=== PATIENT | male | born 1955 | race Caucasian/White ===

== ENCOUNTER 2016-10-26 10:13 | Emergency (ER) | payer BC ==
[~2016-10-26] VITALS: Ht 182.9 cm; Wt 94.3 kg
[2016-10-26] MEDS ORDERED: HYDROCODONE-AP1 EAC6 PO (10:26)
[2016-10-26 11:07] LABS: HEMATOCRIT 44.6 % (42.0-52.0); HEMOGLOBIN 15.1 gm/dL (14.0-18.0); MCH 32.1 pg (26.0-34.0); MCHC 33.9 g/dL (28.0-37.0); MCV 94.8 fL (80.0-100.0); PLATELET COUNT 165 thou/uL (150-400); RBC 4.71 mil/uL (4.50-6.00); RDW 12.5 % (10.5-14.5); WBC 6.7 thou/uL (4.0-11.0)
[2016-10-26 11:08] LABS: MANUAL DIFF YES
[2016-10-26 11:16] LABS: CALCIUM 8.6 mg/dL (8.5-10.1); CREATININE 0.9 mg/dL (0.7-1.3); POTASSIUM 4.1 mmol/L (3.5-5.1)
[2016-10-26 11:46] LABS: ABSOLUTE NEUTROPHILS 4.8 thou/uL (1.4-8.2); ANISOCYTOSIS SLIGHT; TOTAL CELL COUNT 100
[2016-10-26] MEDS ORDERED: CLEOCIN HCL150 MG PO (14:13)
[2016-10-26] MEDS ORDERED: NORCO 5-325 TA1 EACH PO (14:18)
[2016-10-26] MEDS ORDERED: PERCOCET 5-3251 EACH PO (14:28)
[2016-10-26 14:30] VITALS: BP 132/76
== END 2016-10-26 14:31 | disposition home or self-care (01) ==
LOC: ER 10:13
PROVIDERS: Physician Assistant
DX: T66.XXXA Radiation sickness, unspecified, initial encounter (principal); L03.221 Cellulitis of neck; F17.210 Nicotine dependence, cigarettes, uncomplicated; F10.99 Alcohol use, unspecified with unspecified alcohol-induced disorder; F12.10 Cannabis abuse, uncomplicated; W90.8XXA Exposure to other nonionizing radiation, initial encounter; Z98.890 Other specified postprocedural states; Y93.89 Activity, other specified; Y92.89 Other specified places as the place of occurrence of the external cause; Y99.8 Other external cause status

== ENCOUNTER → 2017-07-18 | Outpatient (CLI) | payer BC ==
[~2017-07-18] MED LIST: CLEOCIN HCL150 MG PO; HYDROCODONE-AP1 EAC6 PO; NORCO 5-325 TA1 EACH PO; PERCOCET 5-3251 EACH PO
--- NOTE | ~2017-07-18 | HC ---
[facility] [place] [address] CONSULTATION Name: VAUGHNHEENALETTY Ma Room #: REG [facility]#: [id number] Admission: 07/18/17 Attend Phys: Ryan Latham MD Discharge: Date of : 51 Report #: [id number] THIS REPORT FOR: //name// CC: [facility] physician/PCP yRan Latham Please match this up with our wound's expert H and P as well. 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 The patient states he then subsequently developed a new left buccal lesion back in 10/2015 that was positive for squamous cell carcinoma and had a transoral resection of the left buccal cancer with split-thickness skin graft back in 10/2015. The patient had no adjuvant therapy associated with this. The patient states then he had actually a recurrent area noted in 01/2016 which also was squamous cell carcinoma, had resection of this as well. He was then referred to Oncology back in 03/2016. The patient then was started on cisplatin as well as concurrent radiation therapy to the site. The patient had a total of 5 weeks of cisplatin and then his last dose of radiation was in 05/2016. The patient then most recently presented to his oncologist for significant trismus and possible infection of his left lower mandibular region with evidence of associated infected tooth. The patient's dentist's actually is wanting to pull the tooth; however, given his significant amount of radiation therapy to that site and the patient on CAT scan now shows significant cellulitis and myositis secondary to the infection and the radiation tissue, he was referred to our facility for hyperbaric oxygen therapy. The patient at this time is referred once again for hyperbaric oxygen therapy for pre and post treatments prior to undergoing dental extraction of the infected tooth in his previously irradiated mandibular region. The patient does complain of mild pain associated with the infection. The patient, however, denies fevers or chills. The patient is currently on antibiotics. For past medical and surgical history as well as his current medications, drug allergies, social history, review of systems as well as the associated physical exam, please see the wound expert's documentation which is extensive. IMPRESSION: 1. Soft tissue area of necrosis of the left mandibular region, status post over 6000 rads of radiation therapy secondary to recurrent buccal carcinoma-the patient is now cancer free. 2. Infected left lower molar, requiring extraction. 3. History of cisplatin chemotherapy with last dose being 05/24/2016. PLAN: At this time, I have talked to the patient at length and we will plan on treating this patient with pre and post treatment of hyperbaric oxygen therapy prior to undergoing dental extraction in a previously irradiated mandibular region. We will do 20 treatments prior to extraction [place] [address] CONSULTATION Name: LETTY DAVILA Room #: REG CLI Linda#: [id number] Admission: 07/18/17 Attend Phys: Ryan Latham MD Discharge: Date of : 51 Report #: [id number] be sent for the extraction and will have a total of 10 treatments after the extraction. We will watch the patient very closely and keep in contact with his oncology physicians as well as his dentist. <ELECTRONICALLY SIGNED> By: Ryan Latham MD 08/17/17 1524 [id number] Ryan Latham MD /nt
== END ==
LOC: RAD 06:40 → HYPER 06:40
DX: T66.XXXA Radiation sickness, unspecified, initial encounter (principal); T87.44 Infection of amputation stump, left lower extremity

== ENCOUNTER → 2017-07-24 | Outpatient (CLI) | payer BC | LOC: HYPER 06:43 | DX: L59.8 Other specified disorders of the skin and subcutaneous tissue related to radiation (principal); M27.8 Other specified diseases of jaws; Z85.828 Personal history of other malignant neoplasm of skin; Z85.818 Personal history of malignant neoplasm of other sites of lip, oral cavity, and pharynx; Z87.891 Personal history of nicotine dependence; Z72.89 Other problems related to lifestyle; Y84.2 Radiological procedure and radiotherapy as the cause of abnormal reaction of the patient, or of later complication, without mention of misadventure at the time of the procedure ==

== ENCOUNTER → 2017-07-25 | Outpatient (CLI) | payer BC | LOC: HYPER 06:53 | DX: L59.8 Other specified disorders of the skin and subcutaneous tissue related to radiation (principal); M27.8 Other specified diseases of jaws; Z85.819 Personal history of malignant neoplasm of unspecified site of lip, oral cavity, and pharynx; Z87.891 Personal history of nicotine dependence; Z72.89 Other problems related to lifestyle; Y84.2 Radiological procedure and radiotherapy as the cause of abnormal reaction of the patient, or of later complication, without mention of misadventure at the time of the procedure ==

== ENCOUNTER → 2017-07-26 | Outpatient (CLI) | payer BC | LOC: HYPER 08:13 | DX: L59.8 Other specified disorders of the skin and subcutaneous tissue related to radiation (principal); M27.2 Inflammatory conditions of jaws; Z85.828 Personal history of other malignant neoplasm of skin; Z85.819 Personal history of malignant neoplasm of unspecified site of lip, oral cavity, and pharynx; Z87.891 Personal history of nicotine dependence; Z72.89 Other problems related to lifestyle; Y84.2 Radiological procedure and radiotherapy as the cause of abnormal reaction of the patient, or of later complication, without mention of misadventure at the time of the procedure ==

== ENCOUNTER → 2017-07-27 | Outpatient (CLI) | payer BC | LOC: HYPER 06:54 | DX: L59.8 Other specified disorders of the skin and subcutaneous tissue related to radiation (principal); M27.8 Other specified diseases of jaws; Z85.828 Personal history of other malignant neoplasm of skin; Z92.3 Personal history of irradiation; Z87.891 Personal history of nicotine dependence; Z72.89 Other problems related to lifestyle ==

== ENCOUNTER → 2017-07-31 | Outpatient (CLI) | payer BC | LOC: HYPER 07:01 | DX: L59.8 Other specified disorders of the skin and subcutaneous tissue related to radiation (principal); M27.2 Inflammatory conditions of jaws; Z85.819 Personal history of malignant neoplasm of unspecified site of lip, oral cavity, and pharynx; Z87.891 Personal history of nicotine dependence; Z72.89 Other problems related to lifestyle; Y84.2 Radiological procedure and radiotherapy as the cause of abnormal reaction of the patient, or of later complication, without mention of misadventure at the time of the procedure ==

== ENCOUNTER → 2017-08-01 | Outpatient (CLI) | payer BC | LOC: HYPER 06:42 | DX: M27.2 Inflammatory conditions of jaws (principal); L59.8 Other specified disorders of the skin and subcutaneous tissue related to radiation; Z85.828 Personal history of other malignant neoplasm of skin; Z92.3 Personal history of irradiation; M87.88 Other osteonecrosis, other site; Z87.891 Personal history of nicotine dependence; Z72.89 Other problems related to lifestyle ==

== ENCOUNTER → 2017-08-02 | Outpatient (CLI) | payer BC | LOC: HYPER 07:04 | DX: M27.8 Other specified diseases of jaws (principal); L59.8 Other specified disorders of the skin and subcutaneous tissue related to radiation; Z85.828 Personal history of other malignant neoplasm of skin; Z92.3 Personal history of irradiation; Z87.891 Personal history of nicotine dependence; Z72.89 Other problems related to lifestyle ==

== ENCOUNTER → 2017-08-03 | Outpatient (CLI) | payer BC | LOC: HYPER 06:47 | DX: L59.8 Other specified disorders of the skin and subcutaneous tissue related to radiation (principal); M27.2 Inflammatory conditions of jaws; Z85.819 Personal history of malignant neoplasm of unspecified site of lip, oral cavity, and pharynx; Z87.891 Personal history of nicotine dependence; Z72.89 Other problems related to lifestyle; Y84.2 Radiological procedure and radiotherapy as the cause of abnormal reaction of the patient, or of later complication, without mention of misadventure at the time of the procedure ==

== ENCOUNTER → 2017-08-04 | Outpatient (CLI) | payer BC | LOC: HYPER 07:57 | DX: L59.8 Other specified disorders of the skin and subcutaneous tissue related to radiation (principal); M27.2 Inflammatory conditions of jaws; Z85.819 Personal history of malignant neoplasm of unspecified site of lip, oral cavity, and pharynx; Z87.891 Personal history of nicotine dependence; Z72.89 Other problems related to lifestyle; Y84.2 Radiological procedure and radiotherapy as the cause of abnormal reaction of the patient, or of later complication, without mention of misadventure at the time of the procedure ==

== ENCOUNTER → 2017-08-07 | Outpatient (CLI) | payer BC | LOC: HYPER 06:50 | DX: L59.8 Other specified disorders of the skin and subcutaneous tissue related to radiation (principal); M27.2 Inflammatory conditions of jaws; D48.5 Neoplasm of uncertain behavior of skin; Z85.828 Personal history of other malignant neoplasm of skin; Z87.891 Personal history of nicotine dependence; Z72.89 Other problems related to lifestyle ==

== ENCOUNTER → 2017-08-08 | Outpatient (CLI) | payer BC | LOC: HYPER 06:45 | DX: M27.8 Other specified diseases of jaws (principal); L59.8 Other specified disorders of the skin and subcutaneous tissue related to radiation; Z85.828 Personal history of other malignant neoplasm of skin; Z92.3 Personal history of irradiation; Z87.891 Personal history of nicotine dependence; Z72.89 Other problems related to lifestyle ==

== ENCOUNTER → 2017-08-09 | Outpatient (CLI) | payer BC | LOC: HYPER 07:00 | DX: L59.8 Other specified disorders of the skin and subcutaneous tissue related to radiation (principal); M27.2 Inflammatory conditions of jaws; D48.5 Neoplasm of uncertain behavior of skin; Z85.828 Personal history of other malignant neoplasm of skin; Z92.3 Personal history of irradiation; Z87.891 Personal history of nicotine dependence; Z72.89 Other problems related to lifestyle ==

== ENCOUNTER → 2017-08-10 | Outpatient (CLI) | payer BC | LOC: HYPER 08:24 | DX: L59.8 Other specified disorders of the skin and subcutaneous tissue related to radiation (principal); M27.2 Inflammatory conditions of jaws; Z85.828 Personal history of other malignant neoplasm of skin; Z87.891 Personal history of nicotine dependence; Z72.89 Other problems related to lifestyle ==

== ENCOUNTER → 2017-08-11 | Outpatient (CLI) | payer BC | LOC: HYPER 08:13 | DX: L59.8 Other specified disorders of the skin and subcutaneous tissue related to radiation (principal); M27.2 Inflammatory conditions of jaws; Z85.818 Personal history of malignant neoplasm of other sites of lip, oral cavity, and pharynx; Z87.891 Personal history of nicotine dependence; Z72.89 Other problems related to lifestyle; Y84.2 Radiological procedure and radiotherapy as the cause of abnormal reaction of the patient, or of later complication, without mention of misadventure at the time of the procedure ==

== ENCOUNTER → 2017-08-14 | Outpatient (CLI) | payer BC | LOC: HYPER 06:51 | DX: M27.2 Inflammatory conditions of jaws (principal); L59.8 Other specified disorders of the skin and subcutaneous tissue related to radiation; Z85.818 Personal history of malignant neoplasm of other sites of lip, oral cavity, and pharynx; Z87.891 Personal history of nicotine dependence; Z72.89 Other problems related to lifestyle; Y84.2 Radiological procedure and radiotherapy as the cause of abnormal reaction of the patient, or of later complication, without mention of misadventure at the time of the procedure ==

== ENCOUNTER → 2017-08-15 | Outpatient (CLI) | payer BC | LOC: HYPER 06:59 | DX: M87.88 Other osteonecrosis, other site (principal); L59.8 Other specified disorders of the skin and subcutaneous tissue related to radiation; Z85.819 Personal history of malignant neoplasm of unspecified site of lip, oral cavity, and pharynx; Z72.89 Other problems related to lifestyle; Z87.891 Personal history of nicotine dependence; Y84.2 Radiological procedure and radiotherapy as the cause of abnormal reaction of the patient, or of later complication, without mention of misadventure at the time of the procedure ==

== ENCOUNTER → 2017-08-16 | Outpatient (CLI) | payer BC | LOC: HYPER 06:36 | DX: M87.88 Other osteonecrosis, other site (principal); L59.8 Other specified disorders of the skin and subcutaneous tissue related to radiation; M27.8 Other specified diseases of jaws; Z85.828 Personal history of other malignant neoplasm of skin; Z92.3 Personal history of irradiation; Z85.818 Personal history of malignant neoplasm of other sites of lip, oral cavity, and pharynx; Z87.891 Personal history of nicotine dependence; Z72.89 Other problems related to lifestyle ==

== ENCOUNTER → 2017-08-17 | Outpatient (CLI) | payer BC | LOC: HYPER 08-09 06:45 | DX: L59.8 Other specified disorders of the skin and subcutaneous tissue related to radiation (principal); M27.8 Other specified diseases of jaws; Z85.818 Personal history of malignant neoplasm of other sites of lip, oral cavity, and pharynx; Z85.828 Personal history of other malignant neoplasm of skin; Z92.3 Personal history of irradiation; Z87.891 Personal history of nicotine dependence; Z72.89 Other problems related to lifestyle; Y84.2 Radiological procedure and radiotherapy as the cause of abnormal reaction of the patient, or of later complication, without mention of misadventure at the time of the procedure ==

== ENCOUNTER → 2017-08-18 | Outpatient (CLI) | payer BC | LOC: HYPER 08:07 | DX: L59.8 Other specified disorders of the skin and subcutaneous tissue related to radiation (principal); M27.8 Other specified diseases of jaws; Z85.818 Personal history of malignant neoplasm of other sites of lip, oral cavity, and pharynx; Z85.828 Personal history of other malignant neoplasm of skin; Z92.3 Personal history of irradiation; Z87.891 Personal history of nicotine dependence; Z72.89 Other problems related to lifestyle ==

== ENCOUNTER → 2017-08-21 | Outpatient (CLI) | payer BC | LOC: HYPER 07:08 | DX: L59.8 Other specified disorders of the skin and subcutaneous tissue related to radiation (principal); M27.2 Inflammatory conditions of jaws; D48.5 Neoplasm of uncertain behavior of skin; Z92.3 Personal history of irradiation; Z85.828 Personal history of other malignant neoplasm of skin; Z87.891 Personal history of nicotine dependence; Z72.89 Other problems related to lifestyle ==

== ENCOUNTER → 2017-08-24 | Outpatient (CLI) | payer BC | LOC: HYPER 06:45 | DX: L59.8 Other specified disorders of the skin and subcutaneous tissue related to radiation (principal); M87.88 Other osteonecrosis, other site; Z92.3 Personal history of irradiation; Z85.818 Personal history of malignant neoplasm of other sites of lip, oral cavity, and pharynx; Z87.891 Personal history of nicotine dependence; Z72.89 Other problems related to lifestyle; Y84.2 Radiological procedure and radiotherapy as the cause of abnormal reaction of the patient, or of later complication, without mention of misadventure at the time of the procedure ==

== ENCOUNTER → 2017-08-28 | Outpatient (CLI) | payer BC | LOC: HYPER 06:44 | DX: L59.8 Other specified disorders of the skin and subcutaneous tissue related to radiation (principal); M27.2 Inflammatory conditions of jaws; D48.5 Neoplasm of uncertain behavior of skin; Z92.3 Personal history of irradiation; Z85.828 Personal history of other malignant neoplasm of skin; Z87.891 Personal history of nicotine dependence; Z72.89 Other problems related to lifestyle ==

== ENCOUNTER → 2017-08-29 | Outpatient (CLI) | payer BC | LOC: HYPER 08-22 16:02 | DX: L59.8 Other specified disorders of the skin and subcutaneous tissue related to radiation (principal); M27.2 Inflammatory conditions of jaws; D48.5 Neoplasm of uncertain behavior of skin; Z92.3 Personal history of irradiation; Z85.828 Personal history of other malignant neoplasm of skin; Z87.891 Personal history of nicotine dependence; Z72.89 Other problems related to lifestyle ==

== ENCOUNTER → 2017-08-30 | Outpatient (CLI) | payer BC | LOC: HYPER 08:00 | DX: M27.8 Other specified diseases of jaws (principal); L59.8 Other specified disorders of the skin and subcutaneous tissue related to radiation; Z85.818 Personal history of malignant neoplasm of other sites of lip, oral cavity, and pharynx; Z87.891 Personal history of nicotine dependence; Y84.2 Radiological procedure and radiotherapy as the cause of abnormal reaction of the patient, or of later complication, without mention of misadventure at the time of the procedure ==

== ENCOUNTER → 2017-08-31 | Outpatient (CLI) | payer BC | LOC: HYPER 08-23 09:56 | DX: L59.8 Other specified disorders of the skin and subcutaneous tissue related to radiation (principal); M27.2 Inflammatory conditions of jaws; D48.5 Neoplasm of uncertain behavior of skin; Z92.3 Personal history of irradiation; Z85.828 Personal history of other malignant neoplasm of skin; Z87.891 Personal history of nicotine dependence; Z72.89 Other problems related to lifestyle ==

== ENCOUNTER → 2017-09-01 | Outpatient (CLI) | payer BC | LOC: HYPER 08:26 | DX: M27.8 Other specified diseases of jaws (principal); L59.8 Other specified disorders of the skin and subcutaneous tissue related to radiation; Z85.818 Personal history of malignant neoplasm of other sites of lip, oral cavity, and pharynx; Z87.891 Personal history of nicotine dependence; Z72.89 Other problems related to lifestyle; Y84.2 Radiological procedure and radiotherapy as the cause of abnormal reaction of the patient, or of later complication, without mention of misadventure at the time of the procedure ==

== ENCOUNTER → 2017-09-04 | Outpatient (CLI) | payer BC | LOC: HYPER 06:58 | DX: M27.2 Inflammatory conditions of jaws (principal); L59.8 Other specified disorders of the skin and subcutaneous tissue related to radiation; D48.5 Neoplasm of uncertain behavior of skin; Z92.3 Personal history of irradiation; K21.9 Gastro-esophageal reflux disease without esophagitis; Z87.891 Personal history of nicotine dependence ==

== ENCOUNTER → 2017-09-05 | Outpatient (CLI) | payer BC | LOC: HYPER 06:53 | DX: L59.8 Other specified disorders of the skin and subcutaneous tissue related to radiation (principal); M27.2 Inflammatory conditions of jaws; D48.5 Neoplasm of uncertain behavior of skin; Z85.828 Personal history of other malignant neoplasm of skin; Z87.891 Personal history of nicotine dependence; Z72.89 Other problems related to lifestyle ==

== ENCOUNTER → 2017-09-06 | Outpatient (CLI) | payer BC | LOC: HYPER 06:49 | DX: M87.88 Other osteonecrosis, other site (principal); L59.8 Other specified disorders of the skin and subcutaneous tissue related to radiation; Z85.818 Personal history of malignant neoplasm of other sites of lip, oral cavity, and pharynx; Z87.891 Personal history of nicotine dependence; Z85.828 Personal history of other malignant neoplasm of skin; Y84.2 Radiological procedure and radiotherapy as the cause of abnormal reaction of the patient, or of later complication, without mention of misadventure at the time of the procedure ==

== ENCOUNTER 2018-03-24 00:03 | Emergency (ER) | payer BC ==
[~2018-03-24] VITALS: Ht 233.7 cm; Wt 90.7 kg
--- NOTE | ~2018-03-24 | EKG ---
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
[2018-03-24 00:44] LABS: ABSOLUTE NEUTROPHILS 3.9 thou/uL (1.4-8.2); BASOPHILS 0.9 % (0.0-2.0); EOSINOPHILS 1.8 % (0.0-3.0); HEMATOCRIT 41.1 % (42.0-52.0); HEMOGLOBIN 14.2 gm/dL (14.0-18.0); LYMPHOCYTES 14.9 % (24.0-44.0); MCH 32.4 pg (26.0-34.0); MCHC 34.5 g/dL (28.0-37.0); MCV 94.1 fL (80.0-100.0); MONOCYTES 9.2 % (1.0-8.0); PLATELET COUNT 173 thou/uL (150-400); POLYS 73.2 % (36.0-66.0); RBC 4.37 mil/uL (4.50-6.00); RDW 13.3 % (10.5-14.5); WBC 5.3 thou/uL (4.0-11.0)
[2018-03-24 00:54] LABS: CALCIUM 8.1 mg/dL (8.5-10.1); POTASSIUM 3.4 mmol/L (3.5-5.1)
[2018-03-24 02:05] VITALS: BP 94/55
== END 2018-03-24 02:11 | disposition home or self-care (01) ==
LOC: ER 00:03
PROVIDERS: Student in an Organized Health Care Education/Training Program
DX: I95.9 Hypotension, unspecified (principal); F10.129 Alcohol abuse with intoxication, unspecified; Z87.891 Personal history of nicotine dependence; Y90.0 Blood alcohol level of less than 20 mg/100 ml

== ENCOUNTER → 2018-05-16 | Outpatient (CLI) | payer BC | LOC: HYPER 06:49 | DX: M27.8 Other specified diseases of jaws (principal); L59.8 Other specified disorders of the skin and subcutaneous tissue related to radiation; C08.0 Malignant neoplasm of submandibular gland; C06.9 Malignant neoplasm of mouth, unspecified; D48.5 Neoplasm of uncertain behavior of skin; K21.9 Gastro-esophageal reflux disease without esophagitis; M87.88 Other osteonecrosis, other site; Z87.891 Personal history of nicotine dependence; Y84.2 Radiological procedure and radiotherapy as the cause of abnormal reaction of the patient, or of later complication, without mention of misadventure at the time of the procedure ==

== ENCOUNTER → 2018-05-17 | Outpatient (CLI) | payer BC | LOC: HYPER 06:58 | DX: M27.8 Other specified diseases of jaws (principal); L59.8 Other specified disorders of the skin and subcutaneous tissue related to radiation; C08.0 Malignant neoplasm of submandibular gland; C06.9 Malignant neoplasm of mouth, unspecified; D48.5 Neoplasm of uncertain behavior of skin; K21.9 Gastro-esophageal reflux disease without esophagitis; M87.88 Other osteonecrosis, other site; Z87.891 Personal history of nicotine dependence; Y84.2 Radiological procedure and radiotherapy as the cause of abnormal reaction of the patient, or of later complication, without mention of misadventure at the time of the procedure ==

== ENCOUNTER → 2018-05-18 | Outpatient (CLI) | payer BC | LOC: HYPER 07:43 | DX: M27.8 Other specified diseases of jaws (principal); L59.8 Other specified disorders of the skin and subcutaneous tissue related to radiation; C08.0 Malignant neoplasm of submandibular gland; C06.9 Malignant neoplasm of mouth, unspecified; D48.5 Neoplasm of uncertain behavior of skin; K21.9 Gastro-esophageal reflux disease without esophagitis; M87.88 Other osteonecrosis, other site; Z87.891 Personal history of nicotine dependence; Y84.2 Radiological procedure and radiotherapy as the cause of abnormal reaction of the patient, or of later complication, without mention of misadventure at the time of the procedure ==

== ENCOUNTER → 2018-05-21 | Outpatient (CLI) | payer BC | LOC: HYPER 07:00 | DX: M27.8 Other specified diseases of jaws (principal); L59.8 Other specified disorders of the skin and subcutaneous tissue related to radiation; C08.0 Malignant neoplasm of submandibular gland; C06.9 Malignant neoplasm of mouth, unspecified; D48.5 Neoplasm of uncertain behavior of skin; K21.9 Gastro-esophageal reflux disease without esophagitis; M87.88 Other osteonecrosis, other site; Z87.891 Personal history of nicotine dependence; Y84.2 Radiological procedure and radiotherapy as the cause of abnormal reaction of the patient, or of later complication, without mention of misadventure at the time of the procedure ==

== ENCOUNTER → 2018-05-22 | Outpatient (CLI) | payer BC | LOC: HYPER 06:47 | DX: M27.8 Other specified diseases of jaws (principal); L59.8 Other specified disorders of the skin and subcutaneous tissue related to radiation; C08.0 Malignant neoplasm of submandibular gland; C06.9 Malignant neoplasm of mouth, unspecified; D48.5 Neoplasm of uncertain behavior of skin; K21.9 Gastro-esophageal reflux disease without esophagitis; M87.88 Other osteonecrosis, other site; Z92.3 Personal history of irradiation; Z87.891 Personal history of nicotine dependence; Y84.2 Radiological procedure and radiotherapy as the cause of abnormal reaction of the patient, or of later complication, without mention of misadventure at the time of the procedure ==

== ENCOUNTER → 2018-05-23 | Outpatient (CLI) | payer BC | LOC: HYPER 07:04 | DX: M27.8 Other specified diseases of jaws (principal); L59.8 Other specified disorders of the skin and subcutaneous tissue related to radiation; C08.0 Malignant neoplasm of submandibular gland; C06.9 Malignant neoplasm of mouth, unspecified; D48.5 Neoplasm of uncertain behavior of skin; M87.88 Other osteonecrosis, other site; K21.9 Gastro-esophageal reflux disease without esophagitis; Z87.891 Personal history of nicotine dependence; Y84.2 Radiological procedure and radiotherapy as the cause of abnormal reaction of the patient, or of later complication, without mention of misadventure at the time of the procedure ==

== ENCOUNTER → 2018-05-24 | Outpatient (CLI) | payer BC | LOC: HYPER 07:05 | DX: M27.8 Other specified diseases of jaws (principal); L59.8 Other specified disorders of the skin and subcutaneous tissue related to radiation; C08.0 Malignant neoplasm of submandibular gland; C06.9 Malignant neoplasm of mouth, unspecified; D48.5 Neoplasm of uncertain behavior of skin; K21.9 Gastro-esophageal reflux disease without esophagitis; M87.88 Other osteonecrosis, other site; Z87.891 Personal history of nicotine dependence; Y84.2 Radiological procedure and radiotherapy as the cause of abnormal reaction of the patient, or of later complication, without mention of misadventure at the time of the procedure ==

== ENCOUNTER → 2018-05-25 | Outpatient (CLI) | payer BC | LOC: HYPER 08:07 | DX: M27.8 Other specified diseases of jaws (principal); L59.8 Other specified disorders of the skin and subcutaneous tissue related to radiation; C08.0 Malignant neoplasm of submandibular gland; C06.9 Malignant neoplasm of mouth, unspecified; D48.5 Neoplasm of uncertain behavior of skin; K21.9 Gastro-esophageal reflux disease without esophagitis; M87.88 Other osteonecrosis, other site; Z92.3 Personal history of irradiation; Z87.891 Personal history of nicotine dependence; Y84.2 Radiological procedure and radiotherapy as the cause of abnormal reaction of the patient, or of later complication, without mention of misadventure at the time of the procedure ==

== ENCOUNTER → 2018-05-28 | Outpatient (CLI) | payer BC | LOC: HYPER 07:05 | DX: M27.8 Other specified diseases of jaws (principal); L59.8 Other specified disorders of the skin and subcutaneous tissue related to radiation; C08.0 Malignant neoplasm of submandibular gland; C06.9 Malignant neoplasm of mouth, unspecified; D48.5 Neoplasm of uncertain behavior of skin; K21.9 Gastro-esophageal reflux disease without esophagitis; M87.88 Other osteonecrosis, other site; Z92.3 Personal history of irradiation; Z87.891 Personal history of nicotine dependence; Y84.2 Radiological procedure and radiotherapy as the cause of abnormal reaction of the patient, or of later complication, without mention of misadventure at the time of the procedure ==

== ENCOUNTER → 2018-05-30 | Outpatient (CLI) | payer BC | LOC: HYPER 05-29 09:08 | DX: M27.8 Other specified diseases of jaws (principal); L59.8 Other specified disorders of the skin and subcutaneous tissue related to radiation; C06.9 Malignant neoplasm of mouth, unspecified; C08.0 Malignant neoplasm of submandibular gland; D48.5 Neoplasm of uncertain behavior of skin; K21.9 Gastro-esophageal reflux disease without esophagitis; M87.38 Other secondary osteonecrosis, other site; Y84.2 Radiological procedure and radiotherapy as the cause of abnormal reaction of the patient, or of later complication, without mention of misadventure at the time of the procedure ==

== ENCOUNTER → 2018-05-31 | Outpatient (CLI) | payer BC | LOC: HYPER 05-29 06:49 | DX: M27.8 Other specified diseases of jaws (principal); L59.8 Other specified disorders of the skin and subcutaneous tissue related to radiation; C08.0 Malignant neoplasm of submandibular gland; C06.9 Malignant neoplasm of mouth, unspecified; D48.5 Neoplasm of uncertain behavior of skin; K21.9 Gastro-esophageal reflux disease without esophagitis; M87.38 Other secondary osteonecrosis, other site; Z87.891 Personal history of nicotine dependence; Y84.2 Radiological procedure and radiotherapy as the cause of abnormal reaction of the patient, or of later complication, without mention of misadventure at the time of the procedure ==

== ENCOUNTER → 2018-06-05 | Outpatient (CLI) | payer BC | LOC: HYPER 07:03 | DX: M27.8 Other specified diseases of jaws (principal); L59.8 Other specified disorders of the skin and subcutaneous tissue related to radiation; C08.0 Malignant neoplasm of submandibular gland; C06.9 Malignant neoplasm of mouth, unspecified; D48.5 Neoplasm of uncertain behavior of skin; K21.9 Gastro-esophageal reflux disease without esophagitis; M87.88 Other osteonecrosis, other site; Z87.891 Personal history of nicotine dependence; Y84.2 Radiological procedure and radiotherapy as the cause of abnormal reaction of the patient, or of later complication, without mention of misadventure at the time of the procedure ==

== ENCOUNTER → 2018-06-06 | Outpatient (CLI) | payer BC | LOC: HYPER 06:50 | DX: M27.2 Inflammatory conditions of jaws (principal); L59.8 Other specified disorders of the skin and subcutaneous tissue related to radiation; C08.0 Malignant neoplasm of submandibular gland; C06.9 Malignant neoplasm of mouth, unspecified; D48.5 Neoplasm of uncertain behavior of skin; K21.9 Gastro-esophageal reflux disease without esophagitis; M87.38 Other secondary osteonecrosis, other site; Z87.891 Personal history of nicotine dependence; Y84.2 Radiological procedure and radiotherapy as the cause of abnormal reaction of the patient, or of later complication, without mention of misadventure at the time of the procedure ==

== ENCOUNTER → 2018-06-07 | Outpatient (CLI) | payer BC | LOC: HYPER 07:00 | DX: M27.2 Inflammatory conditions of jaws (principal); L59.8 Other specified disorders of the skin and subcutaneous tissue related to radiation; C06.9 Malignant neoplasm of mouth, unspecified; C08.0 Malignant neoplasm of submandibular gland; D48.5 Neoplasm of uncertain behavior of skin; K21.9 Gastro-esophageal reflux disease without esophagitis; M87.38 Other secondary osteonecrosis, other site; Z87.891 Personal history of nicotine dependence; Y84.2 Radiological procedure and radiotherapy as the cause of abnormal reaction of the patient, or of later complication, without mention of misadventure at the time of the procedure ==

== ENCOUNTER → 2018-06-08 | Outpatient (CLI) | payer BC | LOC: HYPER 07:45 | DX: M27.2 Inflammatory conditions of jaws (principal); L59.8 Other specified disorders of the skin and subcutaneous tissue related to radiation; C06.9 Malignant neoplasm of mouth, unspecified; C08.0 Malignant neoplasm of submandibular gland; D48.5 Neoplasm of uncertain behavior of skin; K21.9 Gastro-esophageal reflux disease without esophagitis; M87.38 Other secondary osteonecrosis, other site; Z87.891 Personal history of nicotine dependence; Y84.2 Radiological procedure and radiotherapy as the cause of abnormal reaction of the patient, or of later complication, without mention of misadventure at the time of the procedure ==

== ENCOUNTER → 2018-06-13 | Outpatient (CLI) | payer BC | LOC: HYPER 06-04 06:52 | DX: M27.2 Inflammatory conditions of jaws (principal); L59.8 Other specified disorders of the skin and subcutaneous tissue related to radiation; C08.0 Malignant neoplasm of submandibular gland; C06.9 Malignant neoplasm of mouth, unspecified; D48.5 Neoplasm of uncertain behavior of skin; K21.9 Gastro-esophageal reflux disease without esophagitis; M87.38 Other secondary osteonecrosis, other site; Z87.891 Personal history of nicotine dependence; Y84.2 Radiological procedure and radiotherapy as the cause of abnormal reaction of the patient, or of later complication, without mention of misadventure at the time of the procedure ==

== ENCOUNTER → 2018-06-14 | Outpatient (CLI) | payer BC | LOC: HYPER 06:50 | DX: M27.2 Inflammatory conditions of jaws (principal); L59.8 Other specified disorders of the skin and subcutaneous tissue related to radiation; C08.0 Malignant neoplasm of submandibular gland; C06.9 Malignant neoplasm of mouth, unspecified; D48.5 Neoplasm of uncertain behavior of skin; K21.9 Gastro-esophageal reflux disease without esophagitis; M87.38 Other secondary osteonecrosis, other site; Z87.891 Personal history of nicotine dependence; Y84.2 Radiological procedure and radiotherapy as the cause of abnormal reaction of the patient, or of later complication, without mention of misadventure at the time of the procedure ==

== ENCOUNTER → 2018-06-15 | Outpatient (CLI) | payer BC | LOC: HYPER 07:00 | DX: M27.2 Inflammatory conditions of jaws (principal); L59.8 Other specified disorders of the skin and subcutaneous tissue related to radiation; C08.0 Malignant neoplasm of submandibular gland; C06.9 Malignant neoplasm of mouth, unspecified; D48.5 Neoplasm of uncertain behavior of skin; K21.9 Gastro-esophageal reflux disease without esophagitis; M87.38 Other secondary osteonecrosis, other site; Z87.891 Personal history of nicotine dependence; Y84.2 Radiological procedure and radiotherapy as the cause of abnormal reaction of the patient, or of later complication, without mention of misadventure at the time of the procedure ==